=== PATIENT | female | born 1940 | race Caucasian/White ===

== ENCOUNTER → 2023-09-16 13:55 | Outpatient (REF) | payer MEDICARE, OTHER, SELFPAY | LOC: RAD 13:55 | PROVIDERS: ATTENDING PHYSICIAN Internal Medicine; FAMILY PHYSICIAN Family Medicine | DX: I65.23 Occlusion and stenosis of bilateral carotid arteries (principal); I70.0 Atherosclerosis of aorta | CPT/HCPCS: 93880 ==

== ENCOUNTER → 2024-10-20 10:03 | Outpatient (REF) | payer MEDICARE, OTHER, SELFPAY | LOC: HWRAD 10:03 | PROVIDERS: ATTENDING PHYSICIAN Specialist; FAMILY PHYSICIAN Family Medicine; REFERRING PHYSICIAN Internal Medicine | DX: I10 Essential (primary) hypertension (principal) | CPT/HCPCS: 93975 ==

== ENCOUNTER → 2024-11-08 10:32 | Outpatient (REF) | payer MEDICARE, OTHER, SELFPAY | LOC: HWWDC 10:32 | PROVIDERS: ATTENDING PHYSICIAN Obstetrics & Gynecology Gynecology; FAMILY PHYSICIAN Family Medicine | DX: Z12.31 Encounter for screening mammogram for malignant neoplasm of breast (principal) | CPT/HCPCS: 77063; 77067 ==

== ENCOUNTER 2025-06-13 11:12 | Emergency (ER) | payer MEDICARE, OTHER, SELFPAY ==
[2025-06-13] VITALS (13 sets, daily range): BP systolic 134–231; BP diastolic 58–123; BMI 25.0
--- NOTE | 2025-06-13 11:44 | ED.GENMED ---
History of Present Illness
General
Chief Complaint: Blood Pressure Problem
Source: patient
Exam Limitations: none
Time Seen by Provider: 06/13/25 11:23
History of Present Illness
History of Present Illness:
85yoF with a history of hypertension presenting for evaluation of elevated blood pressure. Patient has had longstanding hypertension. She was on amlodipine for many years without any issues but she does started to develop side effects about a year
ago. She tried multiple different manufacturers of amlodipine but this was ultimately discontinued. She is also tried lisinopril and losartan but did not tolerate these due to side effects. She was previously seeing a hypertension specialist but
was told that they did not know what to do for her so she stopped going to see them. She was started on doxazosin 1 mg and HCTZ 12.5 mg several months ago by Dr. Figueroa. She again started to develop side effects which included a rash, burning mouth,
and a 'sore private area.' These medications were discontinued a few weeks ago to see if the side effects would resolve. Symptoms have improved for the most part but she continues to have an itchy rash on her left arm. Her blood pressure was
controlled up until this week. Her blood pressure was 208/103 this morning and she decided to come to the ED for evaluation. Her only current symptom is feeling exhausted but she admits that she is not sleeping well at nighttime. She reports
intermittent palpitations at nighttime but none currently. No chest pain, shortness of breath, headache, visual changes.
Past History
Past History
ED Past Medical History: None
ED Past Surgical History: None
Phy Exam
General Physical Exam
General Presentation: well appearing and no apparent distress
General age: appears stated age
General Skin: warm and dry
General Habitus: normal
General Mental: alert
ENT Exam
ENT Exam: normocephalic
Cardiovascular Exam
Cardiovascular Exam: regular rate/rhythm, no edema and no murmur
Pulmonary Exam
Pulmonary Exam: lungs clear, no respiratory distress, no rales, no crackles, no rhonchi and no wheezing
Neurological Exam
Neurological Exam: alert
[place] Coma Scale
Eye Opening: Spontaneous
Verbal Response: Oriented
Motor Response: Obeys Commands
GCS Total Score: 15
Skin Exam
Skin Exam: normal color and warm/dry
Psychiatric Exam
Psychiatric Exam: normal mood/affect
Course
Orders/Labs/Results
Orders:
Orders
06/13/25
Electrocardiogram (*1) Stat
Comment: DONE
06/13/25 11:43
Cardiac Monitoring- Treatment ONCE
06/13/25 11:53
Complete Blood Count/With Diff Urgent
06/13/25 12:54
Basic Metabolic Panel Urgent
TSH Reflex To Free T4 Urgent
Troponin I Urgent
06/13/25 14:07
CARDIOLOGY CONSULT Urgent
Consulting Provider: Marshall Lomas
Was physician already notified: Yes
06/13/25 15:22
Clonidine [Catapres] 0.1 mg PO NOW STA
Abnormal Lab Results
06/13/25 06/13/25
11:53 12:54
MCHC 31.7 L g/dL
(33.0-37.0)
Absolute Lymphs (auto) 0.7 L 10^3/uL
(1.2-3.4)
Lymphocytes % 13.6 L %
(20.5-51.1)
Monocytes % 9.8 H %
(1.7-9.3)
Sodium 133 L mmol/L
(135-145)
Glucose 101 H mg/dl
(70-99)
06/13/25 11:53
06/13/25 12:54
Vital Signs
Initial and Last Documented VS:
Initial Vital Signs
Temp Pulse Resp BP Pulse Ox
97.7 F 80 20 231/123 98
06/13/25 11:13 06/13/25 11:13 06/13/25 11:13 06/13/25 11:13 06/13/25 11:13
Last Documented Vital Signs
Temp Pulse Resp BP Pulse Ox
97.7 F 74 16 135/58 99
06/13/25 11:13 06/13/25 16:45 06/13/25 16:45 06/13/25 16:35 06/13/25 15:15
MDM/Problems Addressed
Differential Diagnosis Includes:
85yoF here with elevated BP readings. Hx of HTN. Taken off all meds a few weeks ago due to side effects. C/o fatigue but is otherwise asymptomatic. No headache. No CP/SOB. BP 231/123 on arrival. She is well-appearing in no distress. Exam
reassuring. Differential diagnosis includes but is not limited to: Asymptomatic hypertension, hypertensive urgency, hypertensive emergency
Initial ED plan: Check cardiac labs, TSH, and EKG. Will discuss with cardiology given history of multiple medication intolerances.
*Pulse Oximetry
SaO2: 100
Oxygen Mode of Delivery: Room air
Patient hypoxic: no
*EKG
Interpreted by ED Provider?: Yes
EKG Intrepretation Date: 06/13/25
Heart Rate: 74
Rate: normal
Rhythm: sinus and PAC's
Vista: normal axis
QRS Pattern: right bundle branch block (incomplete)
Ischemia: non-specific ST changes
*Critical Care Note
Total Time (30-74mins, 75-104mins- exclusive of procedures): Not Applicable
Update Note
Update Note:
EKG shows normal sinus rhythm without ischemic changes. Troponin within normal limits. Renal function and TSH normal. No evidence of end organ dysfunction. Patient was ultimately assessed by cardiology, Dr. Lomas, at bedside. Patient given
dose of 0.1mg clonidine with significant improvement in BP. BP down to 134/67. Patient stable for discharge if SBP <180 per cardiology. Prescription for 30 day supply of clonidine provided. Cardiology office to call patient to arrange outpatient
f/u. ED return precautions reviewed and patient discharged in stable condition.
ED Attending Note
-
Portions of this chart may have been created with voice recognition software.� Occasional wrong word or��sound alike� substitutions may have occurred due to the inherent limitations of voice recognition software.
Discharge Plan
Departure
Patient Disposition: Home (Routine Discharge)
Date of Disposition: 06/13/25
Time of Disposition: 16:45
Patient with high blood pressure during this ER visit?: Yes
Discharge Problem:
Hypertension
Instructions: High Blood Pressure (DC), Clonidine
Prescriptions:
New
clonidine HCl 0.1 mg tablet
0.1 mg PO DAILY Qty: 30 0RF
No Action
dicloxacillin 500 mg capsule
500 mg PO TID Qty: 21 0RF
Referrals:
Pancho Griffin Jr., DO [Family Provider, Internal Medicine]
Activity Restrictions/Additional Instructions:
Take clonidine as prescribed. Do not stop this medication abruptly.
The cardiology office should call you to set up a follow-up appointment. Please call the office if you do not hear from them in the next 24 hours.
Return to the ER with any worsening symptoms including severe headache, chest pain, or stroke-like symptoms.
Interventions
Interventions:
*Risk Screen - Suicide Last Done: 06/13/25 11:13
*General Assessment Last Done: 06/13/25 11:22
*Neglect/Abuse Screening Last Done: 06/13/25 11:13
*ED- Fall Risk Assessment Last Done: 06/13/25 11:22
*ED COVID-19 Vaccine History Last Done: 06/13/25 11:22
*ED Influenza Vaccine History Last Done: 06/13/25 11:22
*Nursing Disposition Last Done: 06/13/25 16:52
ED- Cardiac Assessment Last Done: 06/13/25 11:27
ED- Neurological Assessment Last Done: 06/13/25 11:27
ED- Pulmonary Assessment Last Done: 06/13/25 11:27
Discharge Date and Time
Print Language: [place]
[2025-06-13 12:08] LABS: Hematocrit 41.9 % (37.0-47.0); Hemoglobin 13.3 g/dL (12.0-16.0); Mean Corp Hgb Conc. 31.7 g/dL (33.0-37.0); Mean Corpuscular Volume 96.1 fL (81.0-99.0); Nucleated Red Blood Cells % 0 %; Platelet Count 281 10^3/uL (130-400); Red Cell Dist. Width 13.1 % (11.5-14.5)
[2025-06-13 13:28] LABS: Blood Urea Nitrogen 10 mg/dl (7-17); Carbon Dioxide 29 mmol/L (22-30); Chloride 99 mmol/L (98-107); Estimated Creatinine Clearance 54 ml/min; Glucose 101 mg/dl (70-99); Sodium 133 mmol/L (135-145); eGFR > 60.00
[2025-06-13 13:29] LABS: Calcium 10.0 mg/dl (8.4-10.2)
[2025-06-13 13:46] LABS: Troponin I 0.026 ng/ml
[2025-06-13] MEDS: CATAPRES 0.1 MG PO (15:25)
--- NOTE | 2025-06-13 15:26 | CON.CAR ---
Consultation
Consultation Request
Date/Time Consultation Requested: 06/13/25 14:07
Date/Time Consultation Performed: 06/13/25 15:00
Requesting Provider: JERICA Jj
Performing Provider: Marshall Lomas MD
Reason for Consultation: hypertension
Medical History
-
Chief Complaint: high BP
History of Present Illness:
85-year-old female with past medical history of PVCs, IVCD, hypertension, and mild aortic/coronary atherosclerosis who presents for evaluation of elevated blood pressure. She has had hypertension for many years with intolerances to most
medications, including amlodipine, lisinopril, losartan hydralazine, doxazosin, and HCTZ. Was on doxazosin and HCTZ most recently but these had to be stopped due to dizziness and rash respectively. On Wednesday she went out to lunch with friends to
[facility] and had a salty meal. She also drinks 1-2 glasses of wine daily. She checked her BP at home this morning and it was 200/100s. She denies chest pain, headaches, dizziness, or palpitations.
Past Medical History
Past Medical History: HTN
Social History
Tobacco: Non-Smoker
Alcohol: Daily
Employment: Retired
Family History
Family History: Reviewed & Not Pertinent
Allergies / Home Medications
Allergy/AdvReac Type Severity Reaction Status Date / Time
Corticosteroids Allergy Severe Unknown Verified 06/13/25 11:13
(Glucocorticoids)
sulfite Allergy Severe Unknown Verified 06/13/25 11:13
Sulfa (Sulfonamide Allergy Unknown Verified 06/13/25 11:13
Antibiotics)
�Medication �Instructions �Recorded �Confirmed �Type
dicloxacillin 500 mg capsule 500 mg PO TID #21 caps 02/04/22 Rx
Review of Systems
-
All other systems: Negative unless noted
Physical Exam
Vital Signs
Temp Pulse Resp BP Pulse Ox
97.7 F 72 16 185/75 98
06/13/25 11:13 06/13/25 14:15 06/13/25 14:15 06/13/25 14:00 06/13/25 14:15
Lab Results
06/13/25 11:53
06/13/25 12:54
Troponin I 0.026 ng/ml 06/13/25 12:54
Physical Exam
General: Well Developed, Well Nourished, No Apparent Distress and Comfortable
Respiratory: Clear and Non Labored Respirations
Cardiac: S1/S2 and Regular Rhythm; Negative Murmur or Peripheral Edema
Neuro: AO x 3
Impression / Plan
-
85-year-old female with past medical history of PVCs, IVCD, hypertension, and mild aortic/coronary atherosclerosis who presents for evaluation of elevated blood pressure.
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
Hypertension, asymptomatic
-Has intolerances to amlodipine, lisinopril, losartan hydralazine, doxazosin, and HCTZ
-We discussed trying beta-blockers but she is hesitant due to potential side effects of lightheadedness/dizziness
-Trial clonidine 0.1 mg daily
-If BP is below 180/100 I would feel comfortable with her being discharged from the ER and we will continue to work on this as an outpatient
Data Reviewed
-
EKG: Tracing Personally Visualized and interpreted
Medical Tests (Nuc Med, Echo etc): Report Reviewed by me
Labs: Labs Reviewed by me and Discussed with Patient
== END 2025-06-13 17:01 | disposition home or self-care (01) ==
LOC: EMR 11:12
PROVIDERS: Physician Assistant; Student in an Organized Health Care Education/Training Program; CONSULT PHYSICIAN Student in an Organized Health Care Education/Training Program; EMERGENCY PHYSICIAN Emergency Medicine; FAMILY PHYSICIAN Family Medicine
DX: I10 Essential (primary) hypertension (principal); I45.10 Unspecified right bundle-branch block; I70.0 Atherosclerosis of aorta; I25.10 Atherosclerotic heart disease of native coronary artery without angina pectoris
CPT/HCPCS: 99284; 80048; 84443; 84484; 85025; 93005